=== PATIENT | female | born 1985 | race Two or more races ===

== ENCOUNTER 2024-08-23 18:56 | Emergency (ER) | payer MEDICAID, SELFPAY ==
[2024-08-23 19:06] VITALS: BP 134/80; PULSE 104; RESP 19; TEMP 36.8; O2SAT 98; BMI 36.7
--- NOTE | 2024-08-23 19:13 | EDNOTE_ITS ---
ED Skin Abcess FB-RME/HPI General Chief complaint: Skin/Abscess/Foreign Body Stated complaint: PAINFUL SKIN BUMPS X 3 DAYS Time Seen by Provider: 08/23/24 19:13 Source: patient Arrival date/time: 08/23/24 18:56 39-year-old female presents emergency department complaining of round red and lesions to lower and upper extremities and abdomen that been ongoing for 3 days. Mother reports several of her children have same symptoms and were treated with antifungal cream which improved symptoms. Patient denies any fever, chills, cough, shortness of breath, throat pain, nausea vomiting, or any other associated symptom. Mode of arrival: ambulatory Limitations: no limitations Related Data Previous Rx's ?Medication ?Instructions ?Recorded hydrocodone 5 mg-acetaminophen 325 1 tab PO BID PRN pain #10 tabs 08/03/23 mg tablet ibuprofen 800 mg tablet 800 mg PO TID PRN pain #30 tabs 08/03/23 clotrimazole 1 % topical cream 1 applic topical BID 4 weeks #15 08/23/24 grams diphenhydramine HCl 25 mg capsule 25 mg PO TID PRN itching 7 days 08/23/24 (Benadryl) #10 caps ibuprofen 600 mg tablet 600 mg PO Q8H PRN pain #20 tabs 08/23/24 Allergies Allergy/AdvReac Type Severity Reaction Status Date / Time No Known Allergies Allergy Verified 08/23/24 18:57 Review of Systems Review of Systems Systems Reviewed: All systems reviewed, normal except as documented Constitutional Constitutional: Reports system reviewed and no additional complaints, except as documented, Denies body ache(s), Denies chills and Denies fever(s) Eyes Eyes: Reports system reviewed and no additional complaints, except as documented and Denies change in vision ENT Ears, Nose, Mouth, and Throat: Reports system reviewed and no additional complaints, except as documented, Denies disequilibrium, Denies dizziness, Denies sore throat and Denies vertigo Cardiovascular Cardiovascular: Reports system reviewed and no additional complaints, except as documented, Denies chest pain and Denies dyspnea Respiratory Respiratory: Reports system reviewed and no additional complaints, except as documented, Denies chest congestion, Denies cough and Denies dyspnea Gastrointestinal Gastrointestinal: Reports system reviewed and no additional complaints, except as documented, Denies abdominal pain, Denies nausea and Denies vomiting Musculoskeletal Musculoskeletal: Reports system reviewed and no additional complaints, except as documented, Denies abnormal gait and Denies arthralgias Integumentary/Breasts Skin/Breast: Reports system reviewed and no additional complaints, except as documented, Denies erythema, Reports rash and Denies wounds Neurologic Neurologic: Reports system reviewed and no additional complaints, except as documented, Denies abnormal gait, Denies disequilibrium, Denies dizziness and Denies vertigo Past Medical History Social History SMOKING STATUS: Never smoker ED Exam General Limitations: Present no limitations General appearance: Present alert and in no apparent distress Head Head exam: Present atraumatic Eye Eye exam: Present normal appearance, PERRL and EOMI ENT ENT exam: Present normal exam, normal oropharynx and mucous membranes moist Neck Neck exam: Present normal inspection, full ROM and trachea midline Chest Chest inspection: Present normal inspection and symmetric chest wall rise Respiratory Respiratory exam: Present normal lung sounds bilaterally Cardiovascular Cardiovascular exam: Present regular rate, normal rhythm and normal heart sounds Abdominal Exam Abdominal exam: Present soft and normal bowel sounds Extremities Exam Extremities exam: Present normal inspection and full ROM Back Exam Back exam: Present normal inspection and full ROM Neurological Exam Neurological exam: Present alert, oriented X3 and CN II-XII intact Psychiatric Psychiatric exam: Present normal affect and normal mood Skin Skin exam: Present warm, dry, intact and rash Expanded Skin Exam Type of lesion: Present rash Distribution: Present generalized, abdomen, LUE, LLE, RUE and RLE Description: Present macular, purpuric and crusting Course Quality Measures none Vital Signs Vital signs: Vital Signs Temperature 98.2 F 08/23/24 19:06 Pulse Rate 104 H 08/23/24 19:06 Respiratory Rate 19 08/23/24 19:06 Blood Pressure 134/80 H 08/23/24 19:06 Pulse Oximetry (%) 98 08/23/24 19:06 Oxygen Delivery Method Room Air 08/23/24 19:06 98% room air within normal limits Skin / Abscess / Foreign Body MDM Narrative MDM Narrative:: 39-year-old female presents emergency department complaining of round red itchy lesions to lower and upper extremities and abdomen that been ongoing for 3 days. Mother reports several of her children have same symptoms and were treated with antifungal cream which improved symptoms. Patient denies any fever, chills, cough, shortness of breath, throat pain, nausea vomiting, or any other associated symptom. On exam rash reddened circular lesions with scaly center. Patient reports other family members rash resolved with antifungal cream more than likely it is a tenia corporis infection. Patient discharged on antifungal ointment and instructed to follow-up with primary care provider request referral to photograph inspector if symptoms persist. instructed to return to emergency department for any worsening symptoms or as needed. Patient data External records reviewed:: [facility] previous records Clinical information provided by:: patient Social determinants that could affect healthcare access:: none Patient has the following chronic illnesses:: See chart How is presenting disease/condition affected by chronic disease/condition?: uneffected by Evaluation data The following diagnostics were reviewed and interpreted by me:: other (specify) (N/A) Lab and/or radiology exams considered but not ordered:: N/A Interpretation Summary: N/A Medications / Prescriptions Medications or Prescriptions considered but not ordered:: Prescribed Medication administrations:: N/A Consultations Consultation(s) initiated? (list below): No Diagnosis Skin/Abscess Differential Diagnosis: abscess of skin or subcutaneous tissue, viral exanthem, urticaria, herpes zoster, allergic reaction to drug, eczema, imp etigo, contact dermatitis and other (Scabies) Most likely diagnosis given after review of the tests above:: Tinea corporis Admission Indicated Admission indicated?: not indicated Admission Request Was there a request for admission?: No Disposition Plan Disposition Plan: Discharge Discharge Attestation Discharge Attestation: The patient and all family members were given an opportunity to ask questions and understood the discharge instructions. Discharge instructions specifically effects, indications for sooner follow up or return to the emergency department, and the expected course of current diagnosis. Patient condition: Stable Discharge Plan Plan Patient Disposition: HOME (Self Care) Disposition Comment: Stable Prescriptions/Referrals Prescriptions/Med Rec: New clotrimazole 1 % cream 1 applic topical BID 28 Days Qty: 15 0RF diphenhydramine HCl [Benadryl] 25 mg capsule 25 mg PO TID PRN (Reason: itching) 7 Days Qty: 10 0RF ibuprofen 600 mg tablet 600 mg PO Q8H PRN (Reason: pain) Qty: 20 0RF No Action ibuprofen 800 mg tablet 800 mg PO TID PRN (Reason: pain) Qty: 30 0RF hydrocodone-acetaminophen 5-325 mg tablet 1 tab PO BID MDD 10 PRN (Reason: pain) Qty: 10 0RF Problem List Clinical Impression: Tinea corporis Patient/Caregiver Discharge Instructions Education Materials: ED Fungal Skin Infection (Tinea) Additional Instructions: Apply medication as prescribed. Follow-up with primary care provider and request referral to photograph inspector if symptoms persist. Return to emergency department for any worsening symptoms or as needed. Print Language: Kinyarwanda Stand Alone Forms: Debra Award Info., Patient Portal Info Letter Attestation Attestation The patient was seen by the midlevel practitioner. I, the co-signing physician, was present during the entire ER visit. While I did not physically examine the patient, I was available for consultation as needed.
== END 2024-08-23 19:22 | disposition home or self-care (01) ==
LOC: SERX 19:25
PROVIDERS: Emergency Provider Emergency Medicine; PCP Nurse Practitioner Family
DX: B35.4 Tinea corporis (principal)
CPT/HCPCS: 99281

== ENCOUNTER 2024-09-23 17:08 | Emergency (ER) | payer MEDICAID, SELFPAY ==
--- NOTE | 2024-09-23 17:25 | PD.EDRME ---
Rapid Medical Screening Exam RME Arrival date/time: 09/23/24 17:08 Chief Complaint: Extremity Injury, Upper Time Seen by Provider: 09/23/24 17:16 Vital signs: Vital Signs Temperature 98.0 F 09/23/24 17:27 Pulse Rate 85 09/23/24 17:27 Respiratory Rate 20 09/23/24 17:27 Blood Pressure 127/85 H 09/23/24 17:27 Pulse Oximetry (%) 97 09/23/24 17:27 Oxygen Delivery Method Room Air 09/23/24 17:27 RME Narrative: Right shoulder pain started this afternoon. Patient felt a pop while putting on her shoes.
[2024-09-23 17:27] VITALS: BP 127/85; PULSE 85; RESP 20; TEMP 36.7; O2SAT 97; BMI 36.0
--- NOTE | 2024-09-23 17:27 | XR_ITS ---
Examination: Shoulder,right, 3 views Technique: Shoulder AP internal rotation, AP external rotation, Y view shoulder, 3 views Exam date and time :September 23, 2024 at 1735 hrs. Indications: Injury to the shoulder today, shoulder pain Findings: No shoulder fracture or dislocation No AC joint separation Impression: No shoulder fracture or dislocation
[2024-09-23] MEDS: ACETAMINOPHEN 500 MG TABLET 1000 MG PO (18:05)
[2024-09-23] MEDS: CYCLObenzaPRINE 5 MG TABLET PO ×2 (18:06→19:51)
[2024-09-23] MEDS: KETOROLAC INJ 60 MG/2 ML VIAL 30 MG IM (18:10)
[2024-09-23] MEDS: LIDOCAINE 5% 1 PATCH TOP (18:13)
[2024-09-23] MEDS: HYDROcodone/APAP 5/325 TABLET 1 TAB PO (19:51)
[2024-09-23 19:52] VITALS: BP 124/83; PULSE 77; RESP 18; TEMP 36.7; O2SAT 99
--- NOTE | 2024-10-22 13:23 | PD.EDUPEX ---
Upper Extremity Injury RME/HPI General Chief Complaint: Extremity Injury, Upper Stated Complaint: right shoulder pain 1400 today Time Seen by Provider: 09/23/24 17:16 Arrival date/time: 09/23/24 17:08 RME / HPI RME / HPI narrative: Right shoulder pain started this afternoon. Patient felt a pop while putting on her shoes. DR [address] [place]ER[place] ED EVALUATION: 39 yo female patient c/o right shoulder pain that started after she was putting on her shoes and heard a pop. Symptoms have improved with medications given in triage. Denies numbness, tingling, weakness. Pain is diffuse and she limits movement secondary to pain. Related Data Previous Rx's ?Medication ?Instructions ?Recorded hydrocodone 5 mg-acetaminophen 325 1 tab PO BID PRN pain #10 tabs 08/03/23 mg tablet ibuprofen 800 mg tablet 800 mg PO TID PRN pain #30 tabs 08/03/23 ibuprofen 600 mg tablet 600 mg PO Q8H PRN pain #20 tabs 08/23/24 cyclobenzaprine 5 mg tablet 5 mg PO TID PRN muscle spasm #14 09/23/24 tabs ibuprofen 600 mg tablet 600 mg PO Q6H PRN pain #30 tabs 09/23/24 Allergies Allergy/AdvReac Type Severity Reaction Status Date / Time No Known Allergies Allergy Verified 09/23/24 17:10 Review of Systems Review of Systems Narrative Review of Systems: CONST: Negative for fever, body aches and chills. HENT: Negative for neck pain/stiffness, headache, congestion, sore throat, swelling. EYES: Negative for discharge/pain or vision changes. RESP: Negative for cough/hemoptysis and shortness of breath. CV: Negative chest pain, difficulty breathing, palpitations. ABD: Negative pain, nausea, vomiting. : Negative increase frequency, dysuria, blood in urine or stool. MUSC: Negative for muscle aches, edema. SKIN: Negative rash, lesions/sores. NEURO: Negative headache, dizziness, weakness. ED Exam Narrative Physical exam: GENERAL APPEARANCE: alert and oriented x 4, well-developed, well-nourished, no acute distress HEENT: Normocephalic, atraumatic LUNGS: No increased work of breathing, no respiratory distress HEART: Good peripheral perfusion ABDOMEN: non distended EXTREMITIES: full passive ROM right shoulder, mild limitation secondary to pain, no deformity, no ligamentous or tendon injury identified ; no edema NEUROLOGIC: awake; alert and oriented x4; cranial nerves II-XII grossly intact PSYCHIATRIC: appropriate mood and affect SKIN: warm, dry, normal color; no rashes Course Quality Measures none Orders Category Date Time Status sling [Splint / Immobilizer] STAT Care 09/23/24 19:40 Completed XR shoulder RT min 2V Stat Exams 09/23/24 17:27 Completed Acetaminophen Tab [Tylenol ES Tab] Med 09/23/24 17:27 Discontinued 1,000 mg PO X1 ONE CYCLObenzaPRINE [Flexeril] Med 09/23/24 17:27 Discontinued 5 mg PO X1 ONE CYCLObenzaPRINE [Flexeril] Med 09/23/24 19:41 Discontinued 5 mg PO X1 ONE HYDROcodone*/APAP 5/325 [[place] 5/325] Med 09/23/24 19:41 Discontinued 1 tab PO X1 ONE Ketorolac Inj [Toradol Inj] Med 09/23/24 17:27 Discontinued 30 mg IM X1 ONE Lidocaine 5% Patch Med 09/23/24 17:27 Discontinued 1 patch TOP X1 ONE Vital Signs Vital signs: Vital Signs Temperature 98.0 F 09/23/24 17:27 Pulse Rate 85 09/23/24 17:27 Respiratory Rate 20 09/23/24 17:27 Blood Pressure 127/85 H 09/23/24 17:27 Pulse Oximetry (%) 97 09/23/24 17:27 Oxygen Delivery Method Room Air 09/23/24 17:27 Extremity Injury Patient data External records reviewed:: [facility] previous records Clinical information provided by:: patient Social determinants that could affect healthcare access:: none Patient has the following chronic illnesses:: denies How is presenting disease/condition affected by chronic disease/condition?: no chronic disease Evaluation data The following diagnostics were reviewed and interpreted by me:: radiology exam(s) (shoulder xr negative for fracture or dislocation or separation as interpreted by me) Lab and/or radiology exams considered but not ordered:: none Interpretation Summary: as above Medications / Prescriptions Medications or Prescriptions considered but not ordered:: none Medication administrations:: Medication Administration History Discontinued Medications Acetaminophen (Acetaminophen 500 Mg Tablet) 1,000 mg PO X1 ONE Stop: 09/23/24 17:28 Last Admin: 09/23/24 18:05 Dose: 1,000 mg Documented By: Hydrocodone Bitart/Acetaminophen (Hydrocodone/Apap 5/325 Tablet) 1 tab PO X1 ONE Stop: 09/23/24 19:42 Last Admin: 09/23/24 19:51 Dose: 1 tab Documented By: OA Cyclobenzaprine HCl (Cyclobenzaprine 5 Mg Tablet) 5 mg PO X1 ONE Stop: 09/23/24 17:28 Last Admin: 09/23/24 18:06 Dose: 5 mg Documented By: Cyclobenzaprine HCl (Cyclobenzaprine 5 Mg Tablet) 5 mg PO X1 ONE Stop: 09/23/24 19:42 Last Admin: 09/23/24 19:51 Dose: 5 mg Documented By: OA Ketorolac Tromethamine (Ketorolac Inj 60 Mg/2 Ml Vial) 30 mg IM X1 ONE Stop: 09/23/24 17:28 Last Admin: 09/23/24 18:10 Dose: 30 mg Documented By: Lidocaine (Lidocaine 5% 1 Patch) 1 patch TOP X1 ONE Stop: 09/23/24 17:28 Last Admin: 09/23/24 18:13 Dose: 1 patch Documented By: as above Consultations Consultation(s) initiated? (list below): No Diagnosis Upper Extremity Injury Differential Diagnosis: other (fracture, dislocation, sprain, strain) Most likely diagnosis given after review of the tests above:: sprain Admission Indicated Admission indicated?: not indicated Admission Request Was there a request for admission?: No Disposition Plan Disposition Plan: Discharge Discharge Attestation Discharge Attestation: The patient and all family members were given an opportunity to ask questions and understood the discharge instructions. Discharge instructions specifically effects, indications for sooner follow up or return to the emergency department, and the expected course of current diagnosis. Patient condition: Stable Shoulder immobilizer for comfort Discharge Plan Plan Patient Disposition: HOME (Self Care) Prescriptions/Referrals Prescriptions/Med Rec: New ibuprofen 600 mg tablet 600 mg PO Q6H PRN (Reason: pain) Qty: 30 0RF cyclobenzaprine 5 mg tablet 5 mg PO TID PRN (Reason: muscle spasm) Qty: 14 0RF No Action ibuprofen 800 mg tablet 800 mg PO TID PRN (Reason: pain) Qty: 30 0RF hydrocodone-acetaminophen 5-325 mg tablet 1 tab PO BID MDD 10 PRN (Reason: pain) Qty: 10 0RF ibuprofen 600 mg tablet 600 mg PO Q8H PRN (Reason: pain) Qty: 20 0RF Referrals: Moon([facility]),ANH Valdez [Primary Care Provider] - In 1 week Problem List Clinical Impression: Sprain of shoulder, right Patient/Caregiver Discharge Instructions Education Materials: ED Shoulder Sprain Print Language: Occitan Stand Alone Forms: Debra Award Info., Work/School Release, Patient Portal Info Letter
== END 2024-09-23 20:19 | disposition home or self-care (01) ==
PROVIDERS: Emergency Provider Emergency Medicine; PCP Nurse Practitioner Family
DX: S43.401A Unspecified sprain of right shoulder joint, initial encounter (principal); X58.XXXA Exposure to other specified factors, initial encounter
CPT/HCPCS: 73030; 96372; 99283; J1885; A9270

== ENCOUNTER → 2025-02-08 | Outpatient (CLI) | payer MEDICAID, SELFPAY ==
--- NOTE | 2025-02-08 09:30 | XR_ITS ---
Examination: Screening digital mammography, bilateral Computer aided detection 3-D breast Tomosynthesis, bilateral Date and time of exam: February 08, 2025 0922 hours No priors Indication: Screening Technique: Nonmagnified MLO, CC views of the breasts to been obtained, reconstructed from 3-D Tomosynthesis images. R2 computer aided detection program utilized for evaluation of suspicious masses and/or abnormal calcifications. 3-D Tomosynthesis images obtained. Findings: The breasts are heterogeneously dense, which may obscure small masses Benign calcifications. No suspicious masses Impression: BI-RADS category II: Benign Findings. Recommend 1 year follow-up mammogram.
== END | disposition home or self-care (01) ==
PROVIDERS: Referring Provider Nurse Practitioner Family; Visit Provider Nurse Practitioner Family
DX: Z12.31 Encounter for screening mammogram for malignant neoplasm of breast (principal); R92.323 Mammographic fibroglandular density, bilateral breasts
CPT/HCPCS: 77063; 77067

== ENCOUNTER → 2025-03-13 | Outpatient (CLI) | payer MEDICAID, SELFPAY ==
--- NOTE | 2025-03-13 13:30 | XR_ITS ---
Examination: Pelvic ultrasound, transabdominal, complete Technique: Transabdominal ultrasound of the pelvis performed using grayscale imaging Date and time of exam: March 13, 2025 1404 hours INDICATIONS: Irregular heavy menses months FINDINGS: Uterus 10.4 cm endometrial stripe 0.6 cm No discrete uterine mass no intrauterine gestation Right ovary 2.3 cm x 3.0 cm arterial flow Left ovary 3.6 cm x 2.4 cm arterial flow 21 x 22 x 18 mm cyst IMPRESSION: Left ovarian simple cyst 21 x 22 x 18 mm
--- NOTE | 2025-03-13 13:30 | XR_ITS ---
Examination: Transvaginal ultrasound of the pelvis, complete Technique: Transvaginal sonographic images pelvis performed using jensen scale imaging Exam date and time: March 13, 2025 1414 hours INDICATIONS: Irregular heavy menses years FINDINGS: Uterus 9.8 cm endometrial stripe 1.5 cm No discrete uterine mass Ovaries obscured by bowel gas Endometrial stripe 15 mm IMPRESSION: No discrete uterine mass, no intrauterine gestation Trace free fluid in the cervical canal.
== END | disposition home or self-care (01) ==
PROVIDERS: Referring Provider Nurse Practitioner Family; Visit Provider Nurse Practitioner Family
DX: N83.292 Other ovarian cyst, left side (principal); N92.0 Excessive and frequent menstruation with regular cycle
CPT/HCPCS: 76830; 76856

== ENCOUNTER → 2025-03-30 | Outpatient (CLI) | payer MEDICAID, SELFPAY ==
--- NOTE | 2025-03-30 10:31 | XR_ITS ---
Examination: Thoracic spine 3 views Technique one AP lateral coned lateral upper dorsal spine 3 views Date and time: 11/30/2024 1147 hours INDICATIONS: Upper back pain one month. FINDINGS: Mild osteopenia Thoracic dextroscoliosis 6 degrees No thoracic fracture Mild diffuse thoracic disc narrowing Mild thoracic spondylosis IMPRESSION: Mild diffuse thoracic degenerative disc disease Mild thoracic spondylosis No thoracic fracture
== END | disposition home or self-care (01) ==
LOC: CDIM 10:26
PROVIDERS: PCP Nurse Practitioner Family; Referring Provider Internal Medicine Rheumatology; Visit Provider Internal Medicine Rheumatology
DX: M51.34 Other intervertebral disc degeneration, thoracic region (principal); M48.04 Spinal stenosis, thoracic region
CPT/HCPCS: 72072

== ENCOUNTER 2025-09-19 08:39 | Outpatient (AMB) | payer MEDICAID, SELFPAY ==
--- NOTE | 2025-09-19 08:55 | AMB.GYNCLNOT ---
Vital Signs 09/19/25 08:57 Height 1.6 m Height Method Stated Weight 92.703 kg Weight Measurement Method Standing Scale BMI 36.2 BP 100/67 Blood Pressure Source Automatic Cuff Blood Pressure Location Right Upper Arm Position Sitting Respiration 18 Pulse 65 Pulse Source Monitor Temp 97.8 F Temp Source Temporal Artery Scan Pulse Oximetry (%) 97 Oxygen Delivery Method Room Air Allergies/Home Meds Allergies & Medications Allergies No Known Allergies Allergy (Verified 09/23/24 17:10) Intake Visit Data Collection New Patient or Established: Established Patient (seen at 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 1. Little interest or pleasure in doing things: not at all 2. Feeling down, depressed, or hopeless: not at all Total score: 0 PHQ-9 3. Trouble falling or staying asleep, or sleeping too much: Not at all 4. Feeling tired or having little energy: Not at all 5. Poor appetite or overeating: Not at all 6. Feeling bad about yourself - or that you are a failure or have let yourself or your family down: Not at all 7. Trouble concentrating on things, such as reading the newspaper or watching television: Not at all 8. Moving or speaking so slowly that other people could have noticed? - Or the opposite - being so fidgety or restless that you have been moving around a lot more than usual: not at all 9. Thoughts that you would be better off or of hurting yourself in some way: Not at all Total score: 0 If you checked off any problems, how difficult have these problems made it for you to do your work, take care of things at home, or get along with other people?: not difficult at all Source: Developed by Drs. Mark Wheeler, Eli Bales, Timothy Erickson and colleagues, with an educational linda from [employer]. Depression screen completed yes Social History Living Situation History Marital Status: Life Partner Lives With: Family Housing: House Tobacco History Smoking Status: Never smoker Second Hand Smoke Exposure: No Alcohol History Alcohol Intake: Never Domestic Abuse History Do You Feel Safe at Home: Yes History of Present Illness HPI Narrative Consultation for ovarian cyst, intermittent pelvic pain for greater than 6 months Vanesa Carvajal is a 2 para 2 female with history of 3 sections presenting for consultation regarding an ovarian cyst found on imaging, referred from [facility]. The patient reports experiencing intermittent pelvic pain that she describes as occurring here and there for longer than 6 months. She does not specify the exact character, severity, or specific triggers for this pain. The patient recently underwent gallbladder removal 2-[address] Abraham in [place]. She endorses having irregular menstrual cycles but states she does not want any intervention for this issue, noting that she should almost be coming off of it, suggesting she may be approaching menopause. The patient admits to not liking to go to doctors. Surgical History: - Cholecystectomy performed by Dr. Abraham in [place] 2-3 weeks prior to current visit - Three sections Obstetric History: - GPAL: A0 L3 - All three pregnancies delivered via section Diagnostic Test Results and Labs: - Pelvic ultrasound (05-19-2025): Uterus 9.8 cm, endometrial stripe 1.5 mm, no discrete uterine mass, ovaries obscured by gas and bowel - Trans-abdominal ultrasound: Uterus same findings as previous ultrasound, right ovary 2.3 x 3.0 cm, left ovary 3.6 x 2.4 cm with arterial flow, ovarian cyst 21 x 22 x 18 mm Exam General General Appearance: alert, in no apparent distress and healthy appearing Head Head exam: atraumatic Neck Neck exam: Present normal inspection and trachea midline Chest Chest inspection: Present normal inspection and symmetric chest wall rise External exam: Present normal external exam; Absent tenderness Neuro Neurological exam: Present oriented X3 Psych Psychiatric exam: Present normal affect and normal mood Office Procedures [facility] LOC & Office Proc's Nursing/Assessment Patient Status: Established Patient OB Clinic Nursing Assessment: Medication Reconciliation, Update PMH in EMR and Vital Signs OB Clinic Coordination of Care: Complex Care and Chronic Disease 1-5, Education Complex Pt/Fam, Consent,records obtained, informed consent, Lab and Imaging orders, Results/Orders obtained and Staff clarify orders Established Patient Charge Established Patient Point Assignment: 110 Established Patient Point Charge: EP Level 3 (80-115) Assessment & Plan Diagnosis / Problem List (1) Right ovarian cyst: Status: Acute Plan Ovarian cyst Assessment: Patient has a small ovarian cyst measuring 21 by 22 by 18 millimeters identified on ultrasound performed in May 2025. The cyst is well below the 50 millimeter threshold for intervention, measuring less than half the size requiring treatment. Patient reports pelvic pain for greater than 6 months duration but the small size of the cyst does not warrant surgical intervention at this time. Plan: - No intervention required for current cyst size - Repeat ultrasound in one year (May 2026) for surveillance - No additional follow-up needed at this time Irregular menstrual cycles Assessment: Patient reports irregular menstrual cycles but states she believes she is approaching menopause. She does not desire any intervention for her menstrual irregularities at this time. Plan: - No intervention per patient preference
[2025-09-19 08:57] VITALS: BP 100/67; PULSE 65; RESP 18; TEMP 36.6; O2SAT 97; BMI 36.2
== END 2025-09-19 09:22 | disposition home or self-care (01) ==
LOC: HODSOBC 08:39
PROVIDERS: PCP Nurse Practitioner Family; Referring Provider Nurse Practitioner Family; Supervising Provider Obstetrics & Gynecology; Visit Provider Obstetrics & Gynecology
DX: N83.201 Unspecified ovarian cyst, right side (principal)
CPT/HCPCS: 99213; G0463